=== PATIENT | male | born 1980 | race Caucasian/White ===

== ENCOUNTER → 2020-01-21 08:59 | Outpatient (CLI) | payer OTHER, SELFPAY ==
--- NOTE | 2020-01-21 | DI.MRI.S_ITS ---
PROCEDURE: MR SHOULDER RT WO CON INDICATIONS: Bursitis of right shoulder TECHNIQUE: Noncontrast oblique coronal T2 fast spin echo with fat saturation, oblique sagittal T1 spin echo and T2 fast spin echo with fat saturation, axial T1 spin echo and T2 fast spin echo with fat saturation through the shoulder. COMPARISON: None. FINDINGS: Image quality: Diagnostic. Rotator cuff: No full-thickness or high-grade partial-thickness tear of the rotator cuff is identified. There is mild increased signal evident involving the subscapularis and infraspinatus tendons without significant partial-thickness tearing. The supraspinatus and teres minor tendons are within normal limits. There is no significant atrophy involving the rotator cuff muscles. Bones and bursae: No acute fracture, dislocation, or suspicious osseous lesion is identified. There are no significant degenerative changes of the glenohumeral joint. There is no glenohumeral joint effusion. There are moderate degenerative changes of the acromioclavicular joint. Mild thickening of the subacromial subdeltoid bursa is present without significant fluid contained within the bursa. Capsule and soft tissues: Evaluation of the glenoid labrum and the glenohumeral ligaments is suboptimal without intra-articular contrast. Upper, there is a small para labral cyst evident along the posterosuperior aspect of the labrum, which may related to a nonvisualized adjacent small tear of the posterosuperior labrum. The lung head of the biceps tendon is normally positioned within the bicipital groove and is otherwise intact and within normal limits. No acute injuries are suspected involving the glenohumeral ligaments. IMPRESSION: 1. Mild infraspinatus and subscapularis tendinopathy without significant tearing. 2. Moderate degenerative changes of the acromioclavicular joint. There is thickening of the underlying bursa without significant fluid contained within the bursa. 3. Questionable small posterosuperior labral tear. The need for better characterization utilizing MR arthrography may be determined clinically. Dictated by: Brian Multani M.D. on 01/21/2020 at 9:26 Approved by: Brian Multani M.D. on 01/21/2020 at 9:30
== END ==
PROVIDERS: Referring Provider Family Medicine Geriatric Medicine; Visit Provider Family Medicine Geriatric Medicine
DX: M75.51 Bursitis of right shoulder (principal)
CPT/HCPCS: 73221

== ENCOUNTER → 2023-04-18 08:12 | Outpatient (CLI) | payer OTHER, SELFPAY ==
--- NOTE | 2023-04-18 | DI.MRI.S_ITS ---
PROCEDURE: MR SHOULDER RT WO CON INDICATIONS: RIGHT SHOULDER INJURY TECHNIQUE: Noncontrast oblique coronal T2 fast spin echo with fat saturation, oblique sagittal T1 spin echo and T2 fast spin echo with fat saturation, axial T1 spin echo and T2 fast spin echo with fat saturation through the shoulder. COMPARISON: [facility], MR, MR SHOULDER RT WO CON, 01/21/2020, 9:11. FINDINGS: Image quality: Excellent. Rotator cuff: There is low-grade partial-thickness tear of the supraspinatus bursal surface from the musculotendinous junction to the footprint. There is moderate subscapularis tendinosis and mild infraspinatus tendinosis. Sagittal images demonstrate rotator cuff muscle atrophy. Bones and bursae: No bone marrow contusions or fractures. There is moderate acromioclavicular joint degeneration. The acromion demonstrates conventional anatomy, without an os acromiale. No pathologic subacromial-subdeltoid or subcoracoid bursal fluid is present. Capsule and soft tissues: There is posterior superior labral tear at 1:00 position. There is low-grade tendinosis of the long head of the biceps tendon which demonstrates normal location and morphology. The rotator interval appears normal, without fibrosis. The coracohumeral ligament is normal in thickness. IMPRESSION: 1. Partial-thickness tear of the supraspinatus tendon. 2. Mild infraspinatus and subscapularis tendinosis. 3. Low-grade tendinosis of the long head of the biceps tendon. 4 Moderate acromioclavicular arthrosis. 5. Posterior superior labral tear. Dictated by: Nic Walker M.D. on 04/18/2023 at 17:08 Approved by: Nic Walker M.D. on 04/18/2023 at 22:17
== END ==
PROVIDERS: PCP Physician Assistant Medical; Referring Provider Physician Assistant Medical; Visit Provider Physician Assistant Medical
DX: S46.011A Strain of muscle(s) and tendon(s) of the rotator cuff of right shoulder, initial encounter (principal); S43.491A Other sprain of right shoulder joint, initial encounter; M19.011 Primary osteoarthritis, right shoulder; S46.811D Strain of other muscles, fascia and tendons at shoulder and upper arm level, right arm, subsequent encounter
CPT/HCPCS: 73221